=== PATIENT | male | born 1955 | race African-American/Black ===

== ENCOUNTER 2018-12-06 10:08 | Inpatient (IN) | payer OTHER ==
[~2018-12-06] VITALS: Ht 170.2 cm; Wt 71.2 kg
[~2018-12-06 10:08] MED LIST: ASPI-1393 PO
[2018-12-06] MEDS ORDERED: ASPIRIN 325MG EC TABLET PO ONE (10:30)
[2018-12-06 10:42] LABS: BASOPHILS % 1.7 % (0.0-2.0); EOSINOPHILS % 0.7 % (0.0-5.0); HEMATOCRIT. 42.1 % (42.0-52.0); HEMOGLOBIN. 13.7 g/dL (14.0-18.0); LYMPHOCYTES % 34.1 % (20.0-50.0); MEAN CORPUSCULAR HEMOGLOBIN 24.5 pg (28.0-32.0); MEAN PLATELET VOLUME 8.4 fl (7.4-10.4); MONOCYTES % 8.8 % (2.0-8.0); NEUTROPHILS % 54.7 % (40.0-76.0); PLATELET 149 x1000/uL (130-400); RED BLOOD CELL COUNT 5.62 mill/uL (4.7-6.1); RED CELL DISTRIBUTION WIDTH 16.2 % (11.6-14.6)
[2018-12-06 10:48] LABS: CHLORIDE 110 mEq/L (98-107)
[2018-12-06 13:50] VITALS: BP 128/97
[2018-12-06] MEDS ORDERED: ACETAMINOPHEN 325MG TABLET PO PRN (14:15)
[2018-12-06] MEDS ORDERED: GUAIFENESIN 200MG/10ML SUGAR FREE UDC PO PRN (14:15)
[2018-12-06] MEDS ORDERED: CLONIDINE 0.1MG TABLET PO PRN (14:15)
[2018-12-06] MEDS ORDERED: MAGNESIUM/ALUMINUM HYDROXIDE/SIMETHICONE 30ML UDC PO PRN (14:15)
[2018-12-06] MEDS ORDERED: ONDANSETRON HCL 4MG/2ML INJ IV PRN (14:15)
[2018-12-06] MEDS ORDERED: DOCUSATE SODIUM 100MG CAPSULE PO PRN (14:15)
[2018-12-06] MEDS ORDERED: IPRATROPIUM/ALBUTEROL 0.5-3(2.5)MG/3ML NEB INH PRN (14:15)
[2018-12-06] MEDS ORDERED: AMLODIPINE 10MG TABLET PO SCH (14:15)
[2018-12-06] MEDS ORDERED: NITROGLYCERIN 0.4MG TABLET SL SL PRN (14:30)
[2018-12-06] MEDS ORDERED: REGADENOSON 0.4 MG/5 ML IV ONE (15:00)
[2018-12-06] MEDS ORDERED: FUROSEMIDE 40MG/4ML VIAL IVP NR (15:15)
[2018-12-06 16:00] VITALS: BP 124/77
[2018-12-06] MEDS: ENOXAPARIN 40MG/0.4ML SYR SUBCUT SCH (16:35)
[2018-12-06] MEDS ORDERED: VERAPAMIL HCL 2.5 MG/1 ML 2ML VIAL IV PRN (18:15)
[2018-12-06 20:00] VITALS: BP 98/73
[2018-12-06] MEDS ORDERED: DILTIAZEM HCL 125 MG in DEXT 5% WATER 100 ML IV PRN (21:30)
[2018-12-06] MEDS ORDERED: DILTIAZEM HCL 5MG/ML 5ML VIAL IV NR (21:30)
[2018-12-06 22:52] VITALS: BP 104/76
[2018-12-06 23:00] VITALS: BP 111/75
[2018-12-06] MEDS: HYDROCODONE/ACETAMINOPHEN 5/325MG TABLET PO PRN (23:11)
[2018-12-07] VITALS (12 sets, daily range): BP systolic 95–131; BP diastolic 54–87
[2018-12-07 00:32] LABS: CREATINE KINASE 69 IU/L (39-308)
[2018-12-07 00:33] LABS: CREATINE KINASE MB FRACTION < 1.0 ng/mL (0.5-3.6)
[2018-12-07 07:00] LABS: BASOPHILS % 0.6 % (0.0-2.0); EOSINOPHILS % 2.6 % (0.0-5.0); HEMATOCRIT. 43.1 % (42.0-52.0); HEMOGLOBIN. 14.1 g/dL (14.0-18.0); LYMPHOCYTES % 50.4 % (20.0-50.0); MEAN CORPUSCULAR HEMOGLOBIN 24.7 pg (28.0-32.0); MEAN CORPUSCULAR VOLUME 75.2 fL (80.0-94.0); MEAN PLATELET VOLUME 9.2 fl (7.4-10.4); MONOCYTES % 9.2 % (2.0-8.0); NEUTROPHILS % 37.2 % (40.0-76.0); PLATELET 144 x1000/uL (130-400); RED BLOOD CELL COUNT 5.73 mill/uL (4.7-6.1); RED CELL DISTRIBUTION WIDTH 16.2 % (11.6-14.6)
[2018-12-07 07:10] LABS: CHLORIDE 110 mEq/L (98-107)
[2018-12-07 07:19] LABS: LDL CHOLESTEROL 120 mg/dL (5-100)
[2018-12-07 07:20] LABS: CREATINE KINASE 63 IU/L (39-308); CREATINE KINASE MB FRACTION < 1.0 ng/mL (0.5-3.6)
[2018-12-07 07:21] LABS: HDL CHOLESTEROL 36 mg/dL (40-59)
[2018-12-07] MEDS ORDERED: REGADENOSON 0.4 MG/5 ML IV ONE (08:43)
[2018-12-07] MEDS: FUROSEMIDE 40MG/4ML VIAL IVP SCH (09:19)
[2018-12-07] MEDS: ASPIRIN 81MG EC TABLET PO SCH (09:19)
[2018-12-07] MEDS ORDERED: DILTIAZEM HCL 5MG/ML 5ML VIAL IV NR (11:45)
[2018-12-07] MEDS: DILTIAZEM HCL 125 MG in DEXT 5% WATER 100 ML IV SCH (12:21)
[2018-12-07] MEDS: ENOXAPARIN 40MG/0.4ML SYR SUBCUT SCH (15:00)
[2018-12-07] MEDS: HYDROCODONE/ACETAMINOPHEN 5/325MG TABLET PO PRN (17:57)
[2018-12-08] VITALS (12 sets, daily range): BP systolic 54–140; BP diastolic 15–91
[2018-12-08] MEDS: DILTIAZEM HCL 125 MG in DEXT 5% WATER 100 ML IV SCH ×2 (01:06→21:51)
[2018-12-08] MEDS ORDERED: DILTIAZEM HCL 125 MG in DEXT 5% WATER 100 ML IV SCH (06:40)
[2018-12-08 07:17] LABS: HEMATOCRIT. 44.2 % (42.0-52.0); HEMOGLOBIN. 14.5 g/dL (14.0-18.0); MEAN CORPUSCULAR HEMOGLOBIN 24.9 pg (28.0-32.0); MEAN CORPUSCULAR VOLUME 75.7 fL (80.0-94.0); MEAN PLATELET VOLUME 9.1 fl (7.4-10.4); PLATELET 148 x1000/uL (130-400); RED BLOOD CELL COUNT 5.84 mill/uL (4.7-6.1); RED CELL DISTRIBUTION WIDTH 16.1 % (11.6-14.6)
[2018-12-08] MEDS: DILTIAZEM HCL 30MG TABLET PO SCH ×3 (08:37→18:21)
[2018-12-08] MEDS: ASPIRIN 81MG EC TABLET PO SCH (08:37)
[2018-12-08] MEDS: FUROSEMIDE 40MG/4ML VIAL IVP SCH (08:37)
[2018-12-08 08:45] LABS: CHLORIDE 107 mEq/L (98-107)
[2018-12-08 11:07] LABS: PLATELET ESTIMATE NORMAL
[2018-12-08] MEDS: ENOXAPARIN 40MG/0.4ML SYR SUBCUT SCH (15:00)
[2018-12-08] MEDS: HYDROCODONE/ACETAMINOPHEN 5/325MG TABLET PO PRN (19:37)
[2018-12-09] VITALS (12 sets, daily range): BP systolic 104–127; BP diastolic 37–78
[2018-12-09] MEDS: DILTIAZEM HCL 30MG TABLET PO SCH ×4 (06:00→18:37)
[2018-12-09 07:23] LABS: BASOPHILS % 0.7 % (0.0-2.0); EOSINOPHILS % 3.4 % (0.0-5.0); HEMATOCRIT. 47.3 % (42.0-52.0); HEMOGLOBIN. 15.4 g/dL (14.0-18.0); LYMPHOCYTES % 43.4 % (20.0-50.0); MEAN CORPUSCULAR HEMOGLOBIN 24.6 pg (28.0-32.0); MEAN CORPUSCULAR VOLUME 75.5 fL (80.0-94.0); MEAN PLATELET VOLUME 8.6 fl (7.4-10.4); MONOCYTES % 12.3 % (2.0-8.0); NEUTROPHILS % 40.2 % (40.0-76.0); PLATELET 163 x1000/uL (130-400); RED BLOOD CELL COUNT 6.26 mill/uL (4.7-6.1); RED CELL DISTRIBUTION WIDTH 16.3 % (11.6-14.6)
[2018-12-09 08:04] LABS: CHLORIDE 107 mEq/L (98-107)
[2018-12-09] MEDS: FUROSEMIDE 40MG/4ML VIAL IVP SCH (08:37)
[2018-12-09] MEDS: ASPIRIN 81MG EC TABLET PO SCH (08:37)
[2018-12-09] MEDS: DILTIAZEM HCL 125 MG in DEXT 5% WATER 100 ML IV SCH (18:36)
[2018-12-09 20:33] LABS: *AMPHETAMINES SCREEN URINE NEGATIVE (NEGATIVE); *BARBITURATES SCREEN URINE NEGATIVE (NEGATIVE)
[2018-12-09 20:34] LABS: *BENZODIAZEPINES SCREEN URINE NEGATIVE (NEGATIVE); *COCAINE SCREEN URINE NEGATIVE (NEGATIVE); METHADONE URINE SCREEN NEGATIVE (NEGATIVE)
[2018-12-09 20:36] LABS: CANNABINOID URINE SCREEN PRESUMTIVE POSITIVE (NEGATIVE); OPIATES URINE SCREEN PRESUMTIVE POSITIVE (NEGATIVE); PHENCYCLIDINE URINE SCREEN NEGATIVE (NEGATIVE)
[2018-12-09] MEDS: HYDROCODONE/ACETAMINOPHEN 5/325MG TABLET PO PRN ×2 (21:50→21:51)
[2018-12-09] MEDS: ENOXAPARIN 60MG/0.6ML SYR SUBCUT SCH (21:50)
[2018-12-10] VITALS (10 sets, daily range): BP systolic 87–127; BP diastolic 56–85
[2018-12-10] MEDS: DILTIAZEM HCL 30MG TABLET PO SCH ×3 (06:57→11:35)
[2018-12-10] MEDS: ASPIRIN 81MG EC TABLET PO SCH (08:51)
[2018-12-10] MEDS: ENOXAPARIN 60MG/0.6ML SYR SUBCUT SCH (08:54)
[2018-12-10] MEDS: FUROSEMIDE 40MG/4ML VIAL IVP SCH (09:05)
[2018-12-14] MEDS ORDERED: ATOR20TA MT (13:15)
[2018-12-14] MEDS ORDERED: DILT30TA38 MT (13:15)
[2018-12-14] MEDS ORDERED: APIX5TAB MT (13:15)
[2018-12-18] MEDS ORDERED: AZIT500T5 PO (16:02)
[2018-12-18] MEDS ORDERED: COR3 PO (16:02)
[2018-12-18] MEDS ORDERED: MED4 MT (16:02)
[2018-12-18] MEDS ORDERED: METF500T PO (16:02)
[2018-12-18] MEDS ORDERED: DILT120C88 PO (16:02)
[2018-12-18] MEDS ORDERED: AMI2 PO (16:02)
[2018-12-18] MEDS ORDERED: RIVA20TA PO (16:02)
== END 2018-12-10 15:35 | disposition home or self-care (01) | DRG 469 ==
LOC: ER 10:08 → 7WST 11:03 → EDBEDREQ 11:05 → EDBEDREQTM 11:05 → ENRESERV 12:45 → 5EST 22:47
PROVIDERS: ADMIT Hospitalist; ATTEND Hospitalist
DX: N17.9 Acute kidney failure, unspecified (principal); D68.59 Other primary thrombophilia; I42.0 Dilated cardiomyopathy; E87.5 Hyperkalemia; I48.0 Paroxysmal atrial fibrillation; R07.89 Other chest pain; I25.10 Atherosclerotic heart disease of native coronary artery without angina pectoris; I48.92 Unspecified atrial flutter; R00.0 Tachycardia, unspecified; R73.9 Hyperglycemia, unspecified; I25.2 Old myocardial infarction; F17.210 Nicotine dependence, cigarettes, uncomplicated; I34.0 Nonrheumatic mitral (valve) insufficiency; F10.20 Alcohol dependence, uncomplicated; Z79.01 Long term (current) use of anticoagulants; Z82.49 Family history of ischemic heart disease and other diseases of the circulatory system; Z91.19 Patient's noncompliance with other medical treatment and regimen; Z95.5 Presence of coronary angioplasty implant and graft; Z79.82 Long term (current) use of aspirin
CPT/HCPCS: 36415; 71045; 80048; 80061; 80305; 82550; 82553; 83735; 83880; 84443; 84481; 84484; 93005; 93306; 93970; 96374; 99285; J1650; J1940; J2785; J3490; J7050; J7060

== ENCOUNTER 2019-02-21 18:27 | Emergency (ER) | payer MEDICAID, OTHER ==
[~2019-02-21] VITALS: Ht 175.3 cm; Wt 90.0 kg
[~2019-02-21 18:27] MED LIST changes: +AMI2 PO; -ASPI-1393 PO; +ATOR20TA MT; +AZIT500T5 PO; +COR3 PO; +DILT120C88 PO; +MED4 MT; +METF500T PO; +RIVA20TA PO
[2019-02-21] MEDS ORDERED: ONDANSETRON HCL 4MG/2ML INJ IV STA (18:57)
[2019-02-21 19:20] LABS: BASOPHILS % 0.8 % (0.0-2.0); EOSINOPHILS % 2.1 % (0.0-5.0); HEMATOCRIT. 46.4 % (42.0-52.0); HEMOGLOBIN. 15.1 g/dL (14.0-18.0); LYMPHOCYTES % 47.8 % (20.0-50.0); MEAN CORPUSCULAR HEMOGLOBIN 25.3 pg (28.0-32.0); MEAN PLATELET VOLUME 8.9 fl (7.4-10.4); MONOCYTES % 11.4 % (2.0-8.0); NEUTROPHILS % 37.9 % (40.0-76.0); PLATELET 163 x1000/uL (130-400); RED BLOOD CELL COUNT 5.95 mill/uL (4.7-6.1); RED CELL DISTRIBUTION WIDTH 18.6 % (11.6-14.6)
[2019-02-21 19:22] LABS: CHLORIDE 101 mEq/L (98-107)
[2019-02-21 19:27] LABS: ETHANOL BLOOD 144 mg/dL
[2019-02-21] MEDS ORDERED: HALOPERIDOL LACTATE 5MG/ML VIAL IM ONE (21:15)
[2019-02-21] MEDS ORDERED: LORAZEPAM 2MG/ML CPJ IV ONE (21:15)
[2019-02-21 21:30] VITALS: BP 115/81
[2019-02-21] MEDS ORDERED: ASPIRIN 81MG TABLET PO ONE (21:30)
[2019-02-21] MEDS ORDERED: ONDANSETRON HCL 4MG/2ML INJ IV PRN (22:15)
[2019-02-21] MEDS ORDERED: MAGNESIUM/ALUMINUM HYDROXIDE/SIMETHICONE 30ML UDC PO PRN (22:15)
[2019-02-21] MEDS ORDERED: KETOROLAC 15MG/ML VIAL IV PRN (22:15)
[2019-02-21] MEDS ORDERED: GUAIFENESIN 200MG/10ML SUGAR FREE UDC PO PRN (22:15)
[2019-02-21] MEDS ORDERED: DOCUSATE SODIUM 100MG CAPSULE PO PRN (22:15)
[2019-02-21] MEDS ORDERED: MVI, ADULT NO.1 10 ML, FOLIC ACID 1 MG, THIAMINE HCL 100 MG in SODIUM CHLORIDE 0.9% 1,0... IV SCH ×4 (22:15)
[2019-02-21] MEDS ORDERED: ACETAMINOPHEN 325MG TABLET PO PRN (22:15)
[2019-02-21] MEDS ORDERED: AMIODARONE HCL 200 MG TABLET PO SCH (22:15)
[2019-02-21] MEDS ORDERED: CLONIDINE 0.1MG TABLET PO PRN (22:15)
[2019-02-21] MEDS ORDERED: LORAZEPAM 2MG/ML CPJ IV PRN (22:15)
[2019-02-21] MEDS ORDERED: NITROGLYCERIN 0.4MG TABLET SL SL PRN (22:15)
[2019-02-21] MEDS ORDERED: DEXTROSE 50% WATER 50ML SYRINGE IV PRN (22:15)
[2019-02-21] MEDS ORDERED: ZOLPIDEM TARTRATE 5MG TABLET PO PRN (22:15)
[2019-02-21] MEDS ORDERED: IPRATROPIUM/ALBUTEROL 0.5-3(2.5)MG/3ML NEB INH PRN (22:15)
[2019-02-22] MEDS ORDERED: INSULIN LISPRO 100 UNITS/ML SUBCUT SCH (08:20)
[2019-02-22] MEDS ORDERED: ASPIRIN 325MG EC TABLET PO SCH (09:00)
[2019-02-22] MEDS ORDERED: FAMOTIDINE 20MG TABLET PO SCH (09:00)
[2019-02-22] MEDS ORDERED: BLOOD SUGAR DIAGNOSTIC STRIP TEST SCH (09:00)
[2019-02-22] MEDS ORDERED: RIVAROXABAN 10 MG TABLET PO SCH (17:00)
== END 2019-02-21 22:40 | disposition left against medical advice (07) ==
LOC: ER 18:27 → EDBEDREQ 21:31 → EDBEDREQTM 21:31 → CANRESERV 21:55 → ENRESERV 21:55 → ER 22:40 → CANBEDREQ 02-22 01:45
DX: I48.2 Chronic atrial fibrillation (principal); I95.9 Hypotension, unspecified; G93.49 Other encephalopathy; N17.9 Acute kidney failure, unspecified; F10.229 Alcohol dependence with intoxication, unspecified; E86.0 Dehydration; F12.10 Cannabis abuse, uncomplicated; I42.9 Cardiomyopathy, unspecified; E78.00 Pure hypercholesterolemia, unspecified; E11.9 Type 2 diabetes mellitus without complications; Y90.6 Blood alcohol level of 120-199 mg/100 ml; Z79.01 Long term (current) use of anticoagulants
CPT/HCPCS: 36415; 71045; 80053; 80061; 80320; 82140; 83036; 83605; 84484; 85025; 93005; 96372; 96374; 96375; 99284; J1630; J2060; J2405; G0480